=== PATIENT | male | born 1950 | race Caucasian/White ===

== ENCOUNTER 2019-12-05 09:19 | Outpatient (CLI) | payer MEDICARE ==
[2019-12-05] MEDS ORDERED: Iopamidol-370 76% 500 ML 1 ML ONE (11:34)
--- NOTE | 2019-12-05 11:51 | CT ---
EXAM: CT ANGIOGRAM OF THE NECK INDICATION: History of cervical spondylosis and cervical radiculopathy. Patient is having cervical spine surgery soon. Evaluate vessels prior to surgery. COMPARISON: None. TECHNIQUE: CT angiogram of the neck are performed in the axial plane. Three-dimensional reformatted images are s ubmitted for interpretation. FINDINGS: POSTCONTRAST SOFT TISSUE NECK CT: Aerodigestive tract:Aerodigestive tract is patent. No mucosal abnormality. Sinuses: Adequate aeration of the paranasal sinuses.. Orbits: Bilateral ocular lenses implants are appropriately located. Both globes are intact. Retrobulb ar fat is preserved. Symmetric attenuation the optic nerves and ocular rectus muscles. Salivary glands:Symmetric attenuation of the parotid and submandibular glands . Thyroid gland: Hypodensity in the left thyroid lobe measuring 2.4 x 1.8 cm. Lymph nodes: No evidence of lymphadenopathy by size criteria. Paraspinal muscles: Symmetric attenuation of the sternocleidomastoid muscles. Appropriate attenuation of the paraspinal muscles. Cervical spine:Extensive degenerative changes of the cervical spine. There is severe loss of disc spa ce height with osteophyte formation at C3-C4, C4-C5 C5-C6 and C6-C7. There is vacuum disc phenomenon at C5-C6. There is sclerosis at the C4-C5, C5-C6 and C6-C7 disc spaces. A small focus of v acuum disc phenomenon at C6-C7 is noted. There is bilateral facet hypertrophy at C2-C3 with associated 4 mm of anterolisthesis. There is also bilateral facet hypertrophy at C5-C6. There are varying degrees of central canal stenosis and neural foraminal narrowing on the basis of degenerative change. Upper mediastinum and lung apices: Chronic changes of the lung parenchyma. No acute abnormality in th e mediastinum. CTA OF THE NECK WITH CONTRAST: Aorta: Appropriate enhancement and luminal diameter. Right carotid artery: Appropriate enhancement and luminal diameter of the origin of the right carotid artery, innominate artery, common carotid artery, carotid bifurcation and internal carotid artery. Atherosclerosis in the right carotid bifurcation and proximal right internal carotid artery. No signi ficant stenosis based upon NASCET criteria. Left carotid: Appropriate enhancement and luminal diameter the origin left carotid artery, common car otid artery, carotid bifurcation and internal carotid artery. Atherosclerosis in the left carotid bifurcation and proximal internal carotid artery. No significant stenosis based upon NASCET criteria. Subclavian arteries:Patent. Vertebral arteries:Patent throughout their course in the neck. Vertebral arteries are essentially cod ominant. IMPRESSION: No hemodynamically significant stenosis, occlusion or aneurysmal formation. Transcribed Date/Time: 12/05/2019 12:02 PM
== END 2019-12-05 09:20 | disposition home or self-care (01) ==
LOC: BICCT 09:19
PROVIDERS: ATTEND Surgery
DX: M47.12 Other spondylosis with myelopathy, cervical region (principal); M47.22 Other spondylosis with radiculopathy, cervical region
CPT/HCPCS: 70498; 82565; Q9967

== ENCOUNTER 2019-12-16 07:25 | Outpatient (CLI) | payer MEDICARE, OTHER ==
[2019-12-16 14:10] LABS: Hemoglobin 14.7 g/dL (14.0-18.0); Mean Corpuscular HGB CONC 33.3 g/dL (32.0-36.0); Mean Corpuscular Hemoglobin 32.3 pg (27.0-31.0); Mean Platelet Volume 7.6 fL (7.4-10.4); Platelet Count 365 thou/uL (130-400); RBC Distribution Width 12.1 % (11.5-14.5); Red Blood Cell (RBC) Count 4.55 mill/uL (4.70-6.10); White Blood Cell (WBC) Count 8.6 thou/uL (4.8-10.8)
[2019-12-16 14:21] LABS: INR-International Normal Ratio 0.9; PTT 26.1 sec (22.9-36.1); Prothrombin Time 12.8 sec (12.0-14.7)
[2019-12-16 14:51] LABS: Anion Gap 15 mmol/L (10-20); BUN (Urea Nitrogen) 17 mg/dL (8.4-25.7); Calc. Creatinine Clearance 0 mL/min (70-130); Calcium 9.5 mg/dL (7.8-10.44); Carbon Dioxide 20 mmol/L (23-31); Chloride 107 mmol/L (98-107); Estimated GFR-MDRD 80; Glucose 133 mg/dL (80-115); Potassium 4.3 mmol/L (3.5-5.1); Sodium 138 mmol/L (136-145)
--- NOTE | 2019-12-17 07:06 | EKG ---
Test Reason : Blood Pressure : / mmHG Vent. Rate : 072 BPM Atrial Rate : 072 BPM P-R Int : 130 ms QRS Dur : 088 ms QT Int : 404 ms P-R-T Axes : 078 052 072 degrees QTc Int : 442 ms Normal sinus rhythm Possible Left atrial enlargement Confirmed by DR. Catrachito BHATTI ([id number]) on 12/17/2019 7:06:45 AM Referred By: DAVEY Confirmed By:DR. Catrachito BHATTI
[2019-12-17 11:54] LABS: SARS-CoV-2 MS2 Positive; SARS-CoV-2 N Gene Negative; SARS-CoV-2 S Gene Negative; SARS-CoV-2 by NAA Not Detected (NotDetected); SARS-CoV-2 orf1ab Negative
== END 2019-12-16 07:26 | disposition home or self-care (01) ==
LOC: LABBT 07:25
PROVIDERS: ATTEND Surgery
DX: Z01.818 Encounter for other preprocedural examination (principal); M47.16 Other spondylosis with myelopathy, lumbar region; M47.26 Other spondylosis with radiculopathy, lumbar region; M48.02 Spinal stenosis, cervical region; Z20.828 Contact with and (suspected) exposure to other viral communicable diseases
CPT/HCPCS: 80048; 85027; 85610; 85730; 93005; U0003; 87635; 93010

== ENCOUNTER 2019-12-16 11:00 | Inpatient (IN) | payer MEDICARE, OTHER ==
[2019-12-19] MEDS ORDERED: Bacitracin Zinc Ointment 30 gm TUBE ONE ×2 (06:49→06:54)
[2019-12-19] MEDS ORDERED: Sodium Chloride 0.9% 10 ML ONE (06:49)
[2019-12-19] MEDS ORDERED: Thrombin 5000 UNITS/5 ML VIAL ONE ×2 (06:49→11:26)
[2019-12-19] MEDS ORDERED: Fentanyl 250 MCG/5 ML VIAL ONE (07:09)
[2019-12-19] MEDS ORDERED: Midazolam HCl 2 mg/2 ml Vial ONE (07:29)
[2019-12-19] MEDS ORDERED: Rocuronium Bromide 50 MG/5 ML VIAL ONE ×2 (09:34→10:35)
[2019-12-19] MEDS ORDERED: HYDROmorphone 2 MG/ML VIAL ONE (10:10)
[2019-12-19] MEDS ORDERED: Ondansetron PF 4 MG/2 ML Vial ONE (10:29)
[2019-12-19] MEDS ORDERED: Dexamethasone 20 MG/5 ML VIAL ONE (10:29)
[2019-12-19] MEDS ORDERED: Rocuronium Bromide 10 MG/ML (10ML VIAL) ONE (10:29)
[2019-12-19] MEDS ORDERED: Lidocaine 1% PF 5 ML VIAL ONE (10:29)
[2019-12-19] MEDS ORDERED: PROPOFOL 200 MG/20 ML VIAL ONE (10:29)
[2019-12-19] MEDS ORDERED: Ketorolac Tromethamine 30 MG/ML VIAL ONE (10:29)
[2019-12-19] MEDS ORDERED: SUGAMMADEX SODIUM 200 MG/2 ML VIAL ONE (12:01)
[2019-12-19] MEDS ORDERED: Promethazine HCl 25 MG/ML VIAL IM PRN ×2 (12:09→13:02)
[2019-12-19] MEDS ORDERED: Ondansetron HCl/PF 4 MG/2 ML Vial IVP PRN (12:09)
[2019-12-19] MEDS ORDERED: Promethazine HCl 25 MG/ML VIAL SLOW IVP PRN (12:09)
[2019-12-19] MEDS ORDERED: HYDROmorphone 2 MG/ML VIAL SLOW IVP PRN (12:09)
[2019-12-19] MEDS ORDERED: Meperidine HCl/PF 25 MG/ML VIAL SLOW IVP PRN (12:09)
[2019-12-19] MEDS ORDERED: Fleet Enema 133 ML BOT PR PRN (13:02)
[2019-12-19] MEDS ORDERED: traMADol HCl 50 MG TAB PO PRN (13:02)
[2019-12-19] MEDS ORDERED: diphenhydrAMINE 25 MG CAP PO PRN (13:02)
[2019-12-19] MEDS ORDERED: Mag-Al 1200 mg/1200 mg/30 ML UDCUP PO PRN (13:02)
[2019-12-19] MEDS ORDERED: Ondansetron PF 4 MG/2 ML Vial IVP PRN (13:02)
[2019-12-19] MEDS ORDERED: Bisacodyl 10 MG SUPP PR PRN (13:02)
[2019-12-19] MEDS ORDERED: Milk Of Magnesia 30 ML UDCUP PO PRN (13:02)
[2019-12-19] MEDS ORDERED: HYDROmorphone 0.5 MG/0.5 ML SYRINGE ONE (13:30)
[2019-12-19] MEDS ORDERED: Fentanyl 100 MCG/2 ML VIAL ONE ×3 (13:47→15:49)
[2019-12-19] MEDS ORDERED: Metoprolol Tartrate 5 MG/5 ML VIAL ONE (13:54)
[2019-12-19] MEDS ORDERED: Labetalol HCl 100 MG/20 ML VIAL ONE (14:34)
[2019-12-19 18:44] VITALS: BMI 25.1
[2019-12-19] MEDS: Diazepam 5 MG TAB PO PRN (18:55)
[2019-12-19] MEDS: Sodium Chloride 0.9% 1,000 ML IV SCH ×3 (19:03→20:59)
[2019-12-19] MEDS: busPIRone HCl 10 MG TAB PO SCH ×2 (19:03→20:42)
[2019-12-19] MEDS: CEFAZOLIN 2 GM in Premix Bag 1 BAG IVPB SCH ×2 (19:05→23:33)
[2019-12-19] MEDS: Gabapentin 400 MG CAP PO SCH (20:42)
[2019-12-19] MEDS: HYDROcodone/Acetaminophen 7.5/325 mg Tablet PO PRN (20:43)
[2019-12-19] MEDS: lamoTRIgine 100 MG TAB PO SCH (20:43)
[2019-12-19] MEDS ORDERED: cloNIDine 0.2 MG TAB PO SCH (21:45)
[2019-12-19] MEDS: Acetaminophen 325 MG TAB PO PRN (22:32)
[2019-12-19] MEDS ORDERED: cloNIDine 0.2 MG TAB PO PRN (23:15)
[2019-12-19] MEDS: Morphine 2 MG/ML VIAL SLOW IVP PRN (23:33)
[2019-12-20] MEDS: HYDROcodone/Acetaminophen 7.5/325 mg Tablet PO PRN (00:33)
[2019-12-20] MEDS: Morphine 2 MG/ML VIAL SLOW IVP PRN ×2 (02:37→08:34)
[2019-12-20] MEDS: Labetalol HCl 100 MG/20 ML VIAL SLOW IVP PRN (02:38)
[2019-12-20] MEDS: Acetaminophen 325 MG TAB PO PRN ×2 (02:40→07:15)
[2019-12-20] MEDS: HYDROcodone/Acetaminophen 10/325 mg Tablet PO PRN ×4 (04:33→23:40)
[2019-12-20] MEDS: Diazepam 5 MG TAB PO PRN (04:34)
[2019-12-20] MEDS: CEFAZOLIN 2 GM in Premix Bag 1 BAG IVPB SCH ×3 (08:43→23:48)
[2019-12-20] MEDS: busPIRone HCl 10 MG TAB PO SCH ×3 (08:44→20:48)
[2019-12-20] MEDS: Lisinopril/Hydrochlorothiazide 20 mg/12.5 mg Tablet PO SCH (08:44)
[2019-12-20] MEDS: Gabapentin 400 MG CAP PO SCH ×2 (08:45→20:49)
[2019-12-20] MEDS: lamoTRIgine 100 MG TAB PO SCH ×2 (08:45→20:49)
[2019-12-20] MEDS: Venlafaxine HCl XR 150 MG CAP PO SCH (08:45)
[2019-12-20] MEDS: Sodium Chloride 0.9% 1,000 ML IV SCH ×2 (08:52→23:47)
--- NOTE | 2019-12-20 11:28 | PRG ---
DATE OF SERVICE: 12/20/2019 I told Mr. Stuart this morning he needs to take his blood pressure medicine and take his medicines as we have ordered. His systolic blood pressure was 180/80 last night because he would not take his blood pressure medicine. We will add Toradol to his pain medication regimen. We will keep his drain in place. Job ID: [id number]
[2019-12-20] MEDS: Ketorolac Tromethamine 30 MG/ML VIAL IVP PRN (14:06)
[2019-12-20] MEDS: Mometasone 200 MCG/Formoterol 5 MCG 120 PUFF INHALER INH SCH (19:11)
[2019-12-21] MEDS: Diazepam 5 MG TAB PO PRN (04:43)
[2019-12-21] MEDS: HYDROcodone/Acetaminophen 10/325 mg Tablet PO PRN ×3 (06:15→20:30)
[2019-12-21] MEDS: Mometasone 200 MCG/Formoterol 5 MCG 120 PUFF INHALER INH SCH ×2 (07:44→19:18)
[2019-12-21] MEDS: CEFAZOLIN 2 GM in Premix Bag 1 BAG IVPB SCH ×3 (07:53→23:19)
[2019-12-21] MEDS: Gabapentin 400 MG CAP PO SCH ×2 (07:53→20:26)
[2019-12-21] MEDS: busPIRone HCl 10 MG TAB PO SCH ×3 (07:53→20:25)
[2019-12-21] MEDS: lamoTRIgine 100 MG TAB PO SCH ×2 (07:54→20:27)
[2019-12-21] MEDS: Venlafaxine HCl XR 150 MG CAP PO SCH (07:54)
[2019-12-21] MEDS: Lisinopril/Hydrochlorothiazide 20 mg/12.5 mg Tablet PO SCH (07:54)
[2019-12-21] MEDS: Acetaminophen/Codeine 30-300mg Tablet PO PRN ×3 (08:25→23:30)
--- NOTE | 2019-12-21 09:11 | OP ---
DATE OF PROCEDURE: 12/19/2019 [employer] MACHINE OPERATOR: Margareth Mendoza PA-C. 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 PROCEDURES PERFORMED: 1. Anterior C3-C4, C4-C5, C5-C6, C6-C7 diskectomies for decompression of spinal cord neural elements and jewish of lordosis. 2. Placement of interbody spacer, C3-C4, C4-C5, C5-C6, C6-C7, packed with local bone autograft obtained from the same incision and allograft (spacer separate from plate). 3. Anterior cervical plate and screw fixation, C3 through C7. 4. Arthrodesis, C3 through C7, Interbody spacers separate from plate. 5. Bottom of C2-C3, C3-C4, C4-C5, C5-C6, C6-C7 laminectomies, partial facetectomies, and foraminotomies. 6. Screw-meagan fixation, C3, C4, C5, C6, and C7. 7. Posterolateral arthrodesis, C3, C4, C5, C6, and C7. DESCRIPTION OF PROCEDURE: After informed consent was obtained from the patient, the patient was brought to the OR. Proper patient, pause, and identification were carried out. He was positioned supine and his cervical spine kept in neutral position. All appropriate points were padded. We identified an anterior oblique sharda to allow for approach at C3, C4, C5, C6, C7. The linear sharda was made, this area was sterilely cleansed, prepared, and draped. Proper patient, pause, and identification were carried out. The wound was then opened with combination of sharp, monopolar, and blunt dissection. We proceeded to expose the C3, C4, C5, C6, C7 segments. Localization film confirmed our area of interest. We then performed distraction at C3-C4. Diskectomy at C3-C4, C4-C5, C5-C6, C6-C7 was performed with endplate preparation, placement of interbody spacer, C3-C4, C4-C5, C5-C6, C6-C7. All packed with local bone autograft obtained from the same incision and allograft for arthrodesis, the spacers were separate from the plate. Microscope was used for this procedure. Microscope was then removed and anterior cervical plate and screw fixation at C3, C4, C5, C6, C7 occurred. I had opted not to put a left C5 screw as the patient had an ectatic left vertebral artery. Final tightening occurred. The wound was then closed in anatomic layers following the placement of a drain. The patient was then placed in pins and positioned prone with cervical spine in neutral position. A linear dorsal sharda was made posteriorly from C2 through C7. This area was sterilely cleansed, prepared, and draped. Proper patient, pause, and identification were carried out. The wound was then opened with a combination of sharp, monopolar, and blunt dissection. The C2, C3, C4, C5, C6, C7 segments were all exposed. Localization film confirmed our area of interest. We then performed a bottom of C2-C3, C3-C4, C4-C5, C5-C6, C6-C7 laminectomies, partial facetectomies. We then placed screw meagan fixation at C3, C4, C5, C6, C7 for meagan placement, final tightening occurred. Posterolateral arthrodesis was initiated with local bone autograft obtained from the same incision and allograft, C3, C4, C5, C6, C7. Copious irrigation occurred throughout as did maximizing hemostasis. The wound was closed in anatomic layers, following sprinkling of vancomycin powder. The patient emerged from anesthesia. Job ID: [id number]
[2019-12-21] MEDS: Ketorolac Tromethamine 30 MG/ML VIAL IVP PRN ×3 (09:16→23:20)
--- NOTE | 2019-12-21 12:16 | PRG ---
DATE OF SERVICE: Mr. Stuart looks better today. He is more comfortable. His strength is improved. He feels his myelopathy is certainly improved. He has ambulated. He would like to go home tomorrow. I think this is reasonable. We will leave his anterior drain in for one more day and likely plan for removal tomorrow. Should he be ambulating, voiding on his own, we will remove his [place] catheter today, and tolerating orals. We will plan for discharge tomorrow. Job ID: [id number]
[2019-12-21] MEDS ORDERED: FLU VACC QS2020-21(65YR UP)/PF 240 MCG/0.7 ML SYRINGE IM ONE (15:15)
[2019-12-21] MEDS: Sodium Chloride 0.9% 1,000 ML IV SCH (20:19)
[2019-12-22] MEDS: HYDROcodone/Acetaminophen 10/325 mg Tablet PO PRN ×2 (02:30→08:52)
[2019-12-22] MEDS: Acetaminophen/Codeine 30-300mg Tablet PO PRN ×2 (05:28→12:45)
[2019-12-22] MEDS: Sodium Chloride 0.9% 1,000 ML IV SCH (06:23)
[2019-12-22] MEDS: Mometasone 200 MCG/Formoterol 5 MCG 120 PUFF INHALER INH SCH (07:00)
[2019-12-22] MEDS: CEFAZOLIN 2 GM in Premix Bag 1 BAG IVPB SCH (08:49)
[2019-12-22] MEDS: Lisinopril/Hydrochlorothiazide 20 mg/12.5 mg Tablet PO SCH (08:50)
[2019-12-22] MEDS: busPIRone HCl 10 MG TAB PO SCH (08:50)
[2019-12-22] MEDS: Gabapentin 400 MG CAP PO SCH (08:50)
[2019-12-22] MEDS: Venlafaxine HCl XR 150 MG CAP PO SCH (08:50)
[2019-12-22] MEDS: lamoTRIgine 100 MG TAB PO SCH (08:52)
[2019-12-22] MEDS: Labetalol HCl 100 MG/20 ML VIAL SLOW IVP PRN ×3 (09:53→13:43)
[2019-12-22] MEDS: Diazepam 5 MG TAB PO PRN (09:56)
[2019-12-22 11:46] VITALS: TEMP 98.2
[2019-12-22 14:06] VITALS: BP 156/97
--- NOTE | 2019-12-24 00:11 | PRG ---
DATE OF SERVICE: 12/22/2019 HISTORY: Mr. Stuart is postoperative day #3 after undergoing C3 to C7 ACDF and C3 to C7 laminectomies and posterolateral instrumented fusion. The patient was resting on his side in bed when I saw him for evaluation in the morning. He is wearing his [place] J cervical collar while in bed. He does endorse neck pain and is requesting when he can receive his next dose of pain medications. Overall, he reports that his strength is much improved. He has been ambulating without difficulty. The patient demonstrates full strength throughout his extremities on examination. Discussed with the patient options for admission to inpatient rehab for further pain control and therapies versus discharge home. The patient is adamant that he is ready to be discharged home today, so long as he is provided with pain medication. Discussed with the patient that while prior to surgery, he was prescribed [place] 10/325 by another provider, our team will be providing [place] 5/325 with him to go home with. Discussed that this will be a one-time Rx for [place] and that should he require any additional refills, he will need to request this from his Primary Care or Pain Management. The patient voices understanding of our pain medication policy. He will also be provided with tramadol for [id number] pain as well as Flexeril not for muscle spasms. He has exhibited difficulty with blood pressure control during his hospitalization. Blood pressure medications have been ordered during his hospital stay, but the patient has been reluctant to take as recommended. His blood pressure has been as high as 188/110 this morning. He will receive labetalol, and should his blood pressure normalize, he may be discharged home today. Discussed wound care and postoperative restrictions. 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 I counseled him that he will need to ensure that he heals fully from his operation over the next several months before he can fully get back to his normal work activities. Discussed the patient should not perform lifting over 10 pounds for the first 6 weeks after surgery. Discussed that he should wear his [place] J cervical collar when out of bed and ambulating as well as when riding in the car. Our team will see the patient on an outpatient basis in the upcoming week for reevaluation and wound check. May call our office sooner with any questions or concerns. The patient voiced understanding and has no further questions at this time. Job ID: [id number]
== END 2019-12-22 15:05 | disposition home or self-care (01) | DRG 454 ==
LOC: SURG A 12-19 05:43 → SJJU 12-19 16:42
PROVIDERS: ADMIT Surgery; ATTEND Surgery
PROC: 0RG2071 Fusion of 2 or more Cervical Vertebral Joints with Autologous Tissue Substitute, Posterior Approach, Posterior Column, Open Approach (ICD-10-PCS; principal; 2019-12-19)
PROC: 0RG20K0 Fusion of 2 or more Cervical Vertebral Joints with Nonautologous Tissue Substitute, Anterior Approach, Anterior Column, Open Approach (ICD-10-PCS; 2019-12-19)
PROC: 0RB30ZZ Excision of Cervical Vertebral Disc, Open Approach (ICD-10-PCS; 2019-12-19)
PROC: 3E02340 Introduction of Influenza Vaccine into Muscle, Percutaneous Approach (ICD-10-PCS; 2019-12-21)
DX: M48.02 Spinal stenosis, cervical region (principal); M50.023 Cervical disc disorder at C6-C7 level with myelopathy; M50.01 Cervical disc disorder with myelopathy, high cervical region; M50.11 Cervical disc disorder with radiculopathy, high cervical region; M50.123 Cervical disc disorder at C6-C7 level with radiculopathy; Z23 Encounter for immunization; Z20.828 Contact with and (suspected) exposure to other viral communicable diseases; I10 Essential (primary) hypertension; G47.33 Obstructive sleep apnea (adult) (pediatric); J30.2 Other seasonal allergic rhinitis; F32.9 Major depressive disorder, single episode, unspecified; H54.8 Legal blindness, as defined in USA; F41.9 Anxiety disorder, unspecified; F43.10 Post-traumatic stress disorder, unspecified; Z79.899 Other long term (current) drug therapy
CPT/HCPCS: 36415; 76000; 80048; 85027; 85610; 85730; 86850; 86900; 86901; 87635; 90471; 90662; 93005; 94640; C1713; C1768; C1776; G0008; J0690; J1100; J1170; J1885; J2250; J2270; J2405; J2704; J3010; J3370; J3490; J7620; U0003

== ENCOUNTER 2019-12-23 12:13 | Inpatient (IN) | payer MEDICARE ==
[2019-12-23] MEDS ORDERED: Naloxone HCl 0.4 mg/ml Vial ONE (12:52)
[2019-12-23] MEDS ORDERED: Naloxone HCl 2 mg/2 ml Syringe ONE (12:53)
[2019-12-23] MEDS ORDERED: Ondansetron PF 4 MG/2 ML Vial ONE (12:57)
[2019-12-23 13:13] LABS: #Basophils 0.1 thou/uL (0.0-0.2); #Eosinphils 0.1 thou/uL (0.0-0.7); #Lymphocytes 1.5 thou/uL (1.20-3.40); #Monocytes 1.5 thou/uL (0.11-0.59); #Neutrophils 15.2 thou/uL (1.40-6.50); %Basophils 0.3 % (0.0-1.0); %Eosinophils 0.6 % (0.0-10.0); %Lymphocytes 8.2 % (21.0-51.0); %Monocytes 8.1 % (0.0-10.0); %Neutrophils 82.8 % (42.0-75.0); Hemoglobin 12.1 g/dL (14.0-18.0); Mean Corpuscular HGB CONC 33.2 g/dL (32.0-36.0); Mean Corpuscular Hemoglobin 32.7 pg (27.0-31.0); Mean Corpuscular Volume 98.5 fL (78.0-98.0); Mean Platelet Volume 6.9 fL (7.4-10.4); Platelet Count 343 thou/uL (130-400); RBC Distribution Width 11.7 % (11.5-14.5); Red Blood Cell (RBC) Count 3.71 mill/uL (4.70-6.10); White Blood Cell (WBC) Count 18.4 thou/uL (4.8-10.8)
[2019-12-23 13:30] LABS: ALT (SGPT) 27 U/L (8-55); AST (SGOT) 48 U/L (5-34); Albumin 3.6 g/dL (3.4-4.8); Alcohol Less than 10 mg/dL (Less than 10); Alkaline Phosphatase 130 U/L (40-110); Anion Gap 12 mmol/L (10-20); BUN (Urea Nitrogen) 16 mg/dL (8.4-25.7); Bilirubin, Total 0.6 mg/dL (0.2-1.2); Calc. Creatinine Clearance 0 mL/min (70-130); Calcium 8.3 mg/dL (7.8-10.44); Carbon Dioxide 21 mmol/L (23-31); Chloride 105 mmol/L (98-107); Estimated GFR-MDRD Greater than 90; Glucose 137 mg/dL (80-115); Potassium 3.9 mmol/L (3.5-5.1); Protein, Total 6.6 g/dL (5.8-8.1); Salicylate Less than 8.0 mg/dL (15.0-30.0); Sodium 134 mmol/L (136-145)
[2019-12-23] MEDS ORDERED: Naloxone HCl 2 MG, Admixture Fee 1 EACH in Sodium Chloride 0.9% 500 ML IV PRN (13:30)
[2019-12-23] MEDS ORDERED: Naloxone HCl 0.4 mg/ml Vial IV SCH (13:30)
[2019-12-23] MEDS ORDERED: Cefepime 2 GM VIAL ONE (13:34)
[2019-12-23] MEDS ORDERED: Vancomycin 1.5 GRAM/300 ML BAG 1.5 GM in Premix Bag 1 BAG IVPB SCH (13:45)
[2019-12-23] MEDS ORDERED: Cefepime 2 GM in Sodium Chloride 0.9% 100 ML IVPB SCH (13:45)
--- NOTE | 2019-12-23 14:08 | CT ---
CT BRAIN WITHOUT CONTRAST: 12/23/19 HISTORY: 69-year-old male with inability to feel all extremities. EMS administered Narcan and the feeling in all the extremities returned. The patient is able to stand and sit in wheelchair. FINDINGS: No evidence of acute infarct, hemorrhage, midline shift or abnormality extra-axial fluid collections are seen. Asymmetric cortical volume loss is noted. The ventricular size is appropriate and the basil ar cisterns patent. The bony calvarium is intact. The visualized paranasal sinuses and mastoid air ce lls are well aerated. IMPRESSION: No CT evidence of acute intracranial process. POS: MZA
[2019-12-23 14:37] LABS: Bilirubin Negative (Negative); Blood, Urine Negative (Negative); Clarity Clear (Clear); Glucose, Urine (Dipstick) Normal (Negative); Ketone, Urine 10 mg/dL (Negative); Leukocyte Negative Leu/uL (Negative); Nitrite Negative (Negative); Protein, Urine (Dipstick) Negative (Neg-Trace); Specific Gravity, Urine 1.014 (1.002-1.036); Urobilinogen Normal mg/dL (Less than 2); pH, Urine 7.5 (5.0-9.0)
[2019-12-23] MEDS ORDERED: Iopamidol 370 76% 100 ML VIAL ONE (14:39)
--- NOTE | 2019-12-23 14:42 | CT ---
CT NECK SOFT TISSUES WITH CONTRAST: DATE: 12/23/2019. HISTORY: A 69-year-old male with hypesthesia (numbness) of bilateral upper and lower extremities. COMPARISON: CTA of neck of 12/05/2019. FINDINGS: There are new wide, decompressive laminectomy defects, bilateral posterior element metallic screws wi th vertical interlocking rods, and ACDF hardware, at all levels from C2 through C7. In the laminecto my defect at midline, there are postsurgical changes, including fluid and subcutaneous emphysema. Th ere is a new finding of circumferential rim enhancement of the entire thecal sac from C2 through at l east the cervicothoracic junction. Much of the spinal canal contents are obscured by severe streak a rtifact from the metallic hardware, but in levels where the thecal sac is visible, it appears to be s everely flattened in the anteroposterior dimension, presumably by posterior extradural postoperative fluid collection, throughout all visualized levels of the surgery. There is postsurgical edema in the prevertebral space, retropharyngeal space, and posterior periverte bral spaces, and subcutaneous fat posterior to the dorsal cervical fascia. IMPRESSION: 1. Status post anterior cervical diskectomy and fusion, laminectomies, and posterior fusion hardware , throughout almost the entire cervical spine. 2. Postsurgical enhancing granulation tissue circumferentially around the thecal sac outlines anteri or displacement and compression of almost the entire thecal sac by what is presumed to represent dors al postoperative extradural fluid collection. POS: AH
--- NOTE | 2019-12-23 15:23 | PDOC.HHP ---
Hospitalist HPI - History of Present Illness Intermittent paralysis, hypotension History of Present Illness: This is a 69-year-old male patient with a history of Macular degeneration, hypertension, who recently had C3-7 cervical fusion, laminectomy and arthrodesis. He was discharged a day ago after surgery 4 days ago. This morning he was noted to be weak by his in his lower extremities. He was unable to move both lower extremities. And EMS was activated. On evaluation he was noted to be hypotensive which improved with epinephrine injection on the field. He was given Narcan which seemed to improve his paralysis. He was brought to the ED for further evaluation. At the time of my evaluation eduardo walsh complained of ongoing neck and back pain. He was a bit anxious. He denied any chest pain, abdominal pain or diarrhea. On talking to his , she noted he had intermittent cough earlier today with streaks of blood. She notes that he has been generally unable to walk since discharge and she had to help him up to urinate when he needed to. There is no reported incidence of a fall. Patient admits to ongoing neck and back pain and bilateral lower leg pain with weakness however denies any paresthesia or numbness. At presentation his vitals were 144/101, pulse 96, respiratory 19, temperature. Initial saturation was on 6 L oxygen now at 3. Labs showed hyponatremia of 134, CPK 546, leukocytosis of 18.4 and mild anemia of 12.1. CT of his head showed no acute intracranial event., Soft tissue neck CT with contrast showed postsurgical enhancing granulation tissue circumferentially around the thecal sac outlines anterior displacement and compression of almost the entire thecal sac by what is presumed to be postoperative extradural fluid collection While in the ED he was taken to the restroom and noted to become generally paralyzed again unable to move all extremities. He was given a Narcan drip which seemed to reverse this paralysis as well. On discussion with his she notes that she had given him his doses of [place] as prescribed. No indication of excess use of opioids. Neurosurgery came in to evaluate CT scan and patient and noted no acute intervention at the moment and to dischsrge for rehab once stable. Hospitalist consulted for admission for Hospitalist ROS - Review of Systems Constitutional: denies: fever, chills, sweats, weakness Respiratory: reports: cough, dry, shortness of breath, hemoptysis (streak.) Cardiovascular: denies: chest pain, palpitations, orthopnea Genitourinary: denies: dysuria, frequency, incontinence Musculoskeletal: reports: neck pain, leg pain Neurological: reports: weakness. denies: numbness - Medication Medications: Venlafaxine 50 mg every morning Gabapentin 40 mg twice daily [place] 1 as needed Lamotrigine 150 mg twice daily Lisinopril/HCTZ 20/12.5 mg every morning. Pantoprazole 40 mg daily Albuterol inhaler 1 puff as needed Verapamil 240 mg daily. Allergies: No known drug allergies Hospitalist History - Past Medical History Cardiac: reports: HTN - Past Surgical History Other Surgical History: C-spine surgery. - Family History Other Family History: None of significance - Social History Smoking Status: Never smoker Alcohol: reports: None Living Situation: With Family - Exam General Appearance: awake alert General - other findings: In bed, in acute distress with pain. In c-collar Eye: PERRL, anicteric sclera ENT: normocephalic atraumatic, moist mucosa Heart: RRR, no murmur, no gallops, no rubs Gastrointestinal: soft, non-distended, normal bowel sounds Extremities: no cyanosis, no clubbing, no edema, 1+ LE edema Neurological: cranial nerve grossly intact Neurological - other findings: Power 4/5 in both upper and lower limbs Psychiatric: A&O x 3 Hospitalist Results - Labs Result Diagrams: 12/23/19 13:00 12/23/19 12:59 Lab results: WBC 18.4 thou/uL (4.8-10.8) H 12/23/19 13:00 Hgb 12.1 g/dL (14.0-18.0) L 12/23/19 13:00 Hct 36.6 % (42.0-52.0) L 12/23/19 13:00 MCV 98.5 fL (78.0-98.0) H 12/23/19 13:00 Plt Count 343 thou/uL (130-400) 12/23/19 13:00 Neutrophils % 82.8 % (42.0-75.0) H 12/23/19 13:00 Sodium 134 mmol/L (136-145) L 12/23/19 12:59 Potassium 3.9 mmol/L (3.5-5.1) 12/23/19 12:59 Chloride 105 mmol/L (98-107) 12/23/19 12:59 Carbon Dioxide 21 mmol/L (23-31) L 12/23/19 12:59 BUN 16 mg/dL (8.4-25.7) 12/23/19 12:59 Creatinine 0.74 mg/dL (0.7-1.3) 12/23/19 12:59 Glucose 137 mg/dL (80-115) H 12/23/19 12:59 Calcium 8.3 mg/dL (7.8-10.44) 12/23/19 12:59 Total Bilirubin 0.6 mg/dL (0.2-1.2) 12/23/19 12:59 AST 48 U/L (5-34) H 12/23/19 12:59 ALT 27 U/L (8-55) 12/23/19 12:59 Alkaline Phosphatase 130 U/L (40-110) H 12/23/19 12:59 Creatine Kinase 546 U/L (30-200) H 12/23/19 13:00 Serum Total Protein 6.6 g/dL (5.8-8.1) 12/23/19 12:59 Albumin 3.6 g/dL (3.4-4.8) 12/23/19 12:59 Urine Ketones 10 mg/dL (Negative) A 12/23/19 13:24 Urine Blood Negative (Negative) 12/23/19 13:24 Urine Nitrite Negative (Negative) 12/23/19 13:24 Ur Leukocyte Esterase Negative Massimo/uL (Negative) 12/23/19 13:24 Hospitalist H&P A/P - Plan Plan: This is a 69-year-old male patient history of hypertension who recently had C- spine surgery presenting with intermittent generalized weakness and paraparesis. He will be admitted for close monitoring in MICU Intermittent paralysis Likely secondary to post C-spine surgery with edema. He will need admission to MICU for close monitoring We will give Solu-Medrol IV start for now to reduce inflammation If improves will be transferred for physical therapy. Pulmonology consult if he deteriorates. Neurosurgery following. Acute hypoxic respiratory failure. Unclear etiologypossible poor inspiratory effort Concerns for PE versus opiate overdose. Patient is on Narcan dripunlikely We will get a chest x-ray now and evaluate Doppler ultrasound of lower limbs for DVT Holding CTA given that he has had IV contrast for his neck scan We will consider VQ scan if need to evaluate for PE PRN oxygen ABG Pulmonology consult if deteriorates Acute encephalopathy Resolved at the time of my assessment. Patient had intermittent periods of altered mental state of unclear etiology Could be related to opiates however notes he did not take any overdose. We will continue on Narcan drip for now. We will check his ABG B12, TSH Closely monitor. -Shock spinal/sepsis BP improved with epinephrine on the field received vanc and cefapime No other indiation for sepsis-will hold antibiotics for now blood culture ordered. Hypertension Blood pressure not controlled after initial hypotention. Begin home blood pressure medications once verified PRN hydralazine. VT prophylaxisLovenox
--- NOTE | 2019-12-23 16:12 | RAD ---
XR Chest 1 View HISTORY: Hypoxia. COMPARISON: 05/03/2017 FINDINGS: The heart size is normal. The aorta is tortuous. The lungs are well expanded without focal areas of consolidation, pneumothorax or pleural effusions. IMPRESSION: No radiographic evidence of acute cardiopulmonary process.
[2019-12-23] MEDS ORDERED: methylPREDNISolone Sod Succ 40 MG VIAL IVP SCH (17:00)
[2019-12-23 17:16] VITALS: BMI 23.9
[2019-12-23] MEDS: Dextrose 5 % And 0.9 % NaCl 1,000 ML IV SCH (17:31)
[2019-12-23 17:36] LABS: Thyroid Stimulating Hormone 0.1451 uIU/mL (0.35-4.94)
--- NOTE | 2019-12-23 20:07 | ULT ---
BILATERAL LOWER EXTREMITY VENOUS DUPLEX EXAM: Date: 12/23/2019 HISTORY: Recent surgery, bilateral leg pain and swelling. FINDINGS: Real-time color Doppler of right and left lower extremity was performed from groin to calf. This incl udes evaluation of the common femoral, superficial and profunda femoral, saphenous, popliteal, and tr ifurcation veins. This shows patent deep venous system. There is normal compressibility and augmentat ion. There is no evidence of deep venous thrombosis. IMPRESSION: No evidence of deep venous thrombosis of either lower extremity. POS: OFF
[2019-12-23] MEDS: Enoxaparin Sodium 40 MG/0.4 ML SYRINGE SC SCH (21:43)
[2019-12-23] MEDS: Famotidine 20 MG TAB PO SCH (21:43)
[2019-12-23] MEDS: Acetaminophen 500 MG TAB PO PRN (21:44)
[2019-12-24 04:05] LABS: #Basophils 0.1 thou/uL (0.0-0.2); #Lymphocytes 0.7 thou/uL (1.20-3.40); #Monocytes 0.1 thou/uL (0.11-0.59); #Neutrophils 6.5 thou/uL (1.40-6.50); %Basophils 0.9 % (0.0-1.0); %Monocytes 1.2 % (0.0-10.0); %Neutrophils 88.9 % (42.0-75.0); Mean Corpuscular HGB CONC 33.8 g/dL (32.0-36.0); Mean Corpuscular Hemoglobin 32.1 pg (27.0-31.0); Mean Platelet Volume 7.3 fL (7.4-10.4); Platelet Count 385 thou/uL (130-400); RBC Distribution Width 11.6 % (11.5-14.5); Red Blood Cell (RBC) Count 3.74 mill/uL (4.70-6.10); White Blood Cell (WBC) Count 7.3 thou/uL (4.8-10.8)
[2019-12-24 04:14] LABS: Anion Gap 11 mmol/L (10-20); BUN (Urea Nitrogen) 13 mg/dL (8.4-25.7); Calc. Creatinine Clearance 107 mL/min (70-130); Carbon Dioxide 24 mmol/L (23-31); Chloride 105 mmol/L (98-107); Estimated GFR-MDRD Greater than 90; Glucose 165 mg/dL (80-115); Potassium 4.1 mmol/L (3.5-5.1); Sodium 136 mmol/L (136-145)
[2019-12-24] MEDS: Acetaminophen 500 MG TAB PO PRN (04:40)
[2019-12-24] MEDS: Dextrose 5 % And 0.9 % NaCl 1,000 ML IV SCH (06:42)
[2019-12-24] MEDS ORDERED: Non-Formulary Item 1 EACH (Budesonide/Formoterol Fumarate [Budesonide-Formoterol 160-4.5] INH PRN (07:26)
[2019-12-24] MEDS ORDERED: Non-Formulary Item 1 EACH (Albuterol Sulfate Hfa (Or) 200 PUFF Inh) INH PRN (07:26)
[2019-12-24] MEDS ORDERED: HYDROcodone/Acetaminophen 10/325 mg Tablet PO PRN ×2 (07:26→07:40)
[2019-12-24] MEDS ORDERED: PROVENTIL INHALER 6.7 G (200 INHALATIONS) INH PRN (07:47)
[2019-12-24] MEDS ORDERED: hydrALAZINE 20 MG/ML VIAL SLOW IVP PRN (08:40)
--- NOTE | 2019-12-24 08:49 | PDOC.HOSPP ---
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 He has not had any more episodes of weakness. but complains of severe pain in his neck, and back. - Objective Vital Signs & Weight: Vital Signs (12 hours) Temp 12/24/19 00:08 98.6 F Weight Weight 164 lb 1 oz Most Recent Monitor Data Heart Rate from ECG 91 NIBP 180/90 NIBP BP-Mean 120 Respiration from ECG 17 SpO2 100 I&O: 12/23/19 12/24/19 12/25/19 06:59 06:59 06:59 Intake Total 900 Output Total 1600 Balance -700 Result Diagrams: 12/24/19 03:29 12/24/19 03:29 Hospitalist ROS - Medication Medications: Active Medications Generic Name Dose Route Start Last Admin Trade Name Freq PRN Reason Stop Dose Admin Acetaminophen 1,000 mg 12/23/19 19:13 12/24/19 04:40 Acetaminophen 500 Mg Tab PO 1,000 mg Q4H PRN Administration Headache/Fever or Pain Enoxaparin Sodium 40 mg 12/23/19 21:00 12/23/19 21:43 Enoxaparin Sodium 40 Mg/0.4 Ml Syringe SC 40 mg 2100 RONEY Administration Famotidine 20 mg 12/23/19 21:00 12/23/19 21:43 Famotidine 20 Mg Tab PO 20 mg BID RONEY Administration Dextrose/Sodium Chloride 1,000 mls @ 75 mls/hr 12/23/19 16:30 12/24/19 06:42 D5 0.9% Ns IV 1,000 mls .[id number] RONEY Administration Sodium Chloride 10 ml 12/23/19 21:00 12/23/19 21:44 Flush - Normal Saline 10 Ml Syringe IVF 10 ml Q12HR RONEY Administration - Exam General Appearance: NAD Eye: PERRL, anicteric sclera ENT: normocephalic atraumatic, no oropharyngeal lesions Heart: RRR, no murmur, no gallops, no rubs, normal peripheral pulses Respiratory: CTAB, no wheezes, no rales, no ronchi, normal chest expansion, no tachypnea, normal percussion Gastrointestinal: soft, non-tender, non-distended, normal bowel sounds, no palpable masses, no hepatomegaly Extremities: no cyanosis, no clubbing, no edema Neurological: no focal deficits Neurological - other findings: muscle strength is 5/5 in both upper and lower extremities Musculoskeletal: normal tone, normal strength, no muscle wasting Hosp A/P (1) Lower extremity weakness Code(s): R29.898 - OTH SYMPTOMS AND SIGNS INVOLVING THE MUSCULOSKELETAL SYSTEM Status: Acute (2) Cervical spinal stenosis Code(s): M48.02 - SPINAL STENOSIS, CERVICAL REGION Status: Chronic (3) Hx of cervical spine surgery Code(s): Z98.890 - OTHER SPECIFIED POSTPROCEDURAL STATES Status: Chronic (4) Hypertension Code(s): I10 - ESSENTIAL (PRIMARY) HYPERTENSION Status: Chronic (5) Chronic pain Code(s): G89.29 - OTHER CHRONIC PAIN Status: Acute - Plan * Lower extremity weakness- this appears to have resolved, could be related to inflammation from his recent surgery * Agree with PT/OT * HTN- blood pressure is elevated- will re-start his home medications * Chronic pain- re-start [place] * Supressed TSH- will check free T4 and Free T3 * Patient is being screened for Inpatient Rehab
[2019-12-24] MEDS ORDERED: Ketorolac Tromethamine 30 MG/ML VIAL IVP PRN (08:59)
[2019-12-24] MEDS ORDERED: Non-Formulary Item 1 EACH (Lamotrigine [Lamictal] 150 MG Tablet) PO SCH (09:00)
--- NOTE | 2019-12-24 09:09 | PRG ---
DATE OF SERVICE: 12/24/2019 Mr. Stuart was admitted one day after being discharged for accidental narcotic overdose. He was given Narcan x2 and emerged from his narcotic-induced slumber. He is neurologically intact and doing fine. His CT of the neck look fine. He needs inpatient rehab. I talked to the family yesterday about this. Job ID: [id number]
[2019-12-24] MEDS: busPIRone HCl 10 MG TAB PO SCH ×3 (09:23→20:58)
[2019-12-24] MEDS: Famotidine 20 MG TAB PO SCH ×2 (09:23→21:00)
[2019-12-24] MEDS: lamoTRIgine 100 MG TAB PO SCH ×2 (09:24→20:59)
[2019-12-24] MEDS: Venlafaxine HCl XR 150 MG CAP PO SCH (09:25)
[2019-12-24] MEDS: Lisinopril/Hydrochlorothiazide 20 mg/12.5 mg Tablet PO SCH (09:29)
[2019-12-24] MEDS: Gabapentin 400 MG CAP PO SCH ×2 (09:29→21:00)
[2019-12-24 09:53] LABS: Free T4 (Free Thyroxine) 1.09 ng/dL (0.70-1.48)
[2019-12-24] MEDS ORDERED: methylPREDNISolone Sod Succ/PF 125 MG/2 ML VIAL IVP SCH (17:00)
[2019-12-24] MEDS: Mometasone 200 MCG/Formoterol 5 MCG 120 PUFF INHALER INH SCH (18:37)
[2019-12-24] MEDS: Enoxaparin Sodium 40 MG/0.4 ML SYRINGE SC SCH (21:00)
[2019-12-25 05:54] LABS: #Lymphocytes 0.8 thou/uL (1.20-3.40); #Monocytes 0.3 thou/uL (0.11-0.59); #Neutrophils 9.1 thou/uL (1.40-6.50); %Basophils 0.1 % (0.0-1.0); %Eosinophils 0.1 % (0.0-10.0); %Lymphocytes 7.8 % (21.0-51.0); %Monocytes 2.5 % (0.0-10.0); %Neutrophils 89.5 % (42.0-75.0); Hemoglobin 11.4 g/dL (14.0-18.0); Mean Corpuscular HGB CONC 33.2 g/dL (32.0-36.0); Mean Corpuscular Hemoglobin 31.4 pg (27.0-31.0); Mean Corpuscular Volume 94.4 fL (78.0-98.0); Mean Platelet Volume 7.2 fL (7.4-10.4); Platelet Count 412 thou/uL (130-400); RBC Distribution Width 11.7 % (11.5-14.5); Red Blood Cell (RBC) Count 3.65 mill/uL (4.70-6.10); White Blood Cell (WBC) Count 10.2 thou/uL (4.8-10.8)
[2019-12-25 06:18] LABS: Anion Gap 13 mmol/L (10-20); BUN (Urea Nitrogen) 23 mg/dL (8.4-25.7); Calc. Creatinine Clearance 108 mL/min (70-130); Calcium 8.6 mg/dL (7.8-10.44); Carbon Dioxide 22 mmol/L (23-31); Chloride 105 mmol/L (98-107); Estimated GFR-MDRD Greater than 90; Glucose 137 mg/dL (80-115); Potassium 3.9 mmol/L (3.5-5.1); Sodium 136 mmol/L (136-145)
[2019-12-25] MEDS: Mometasone 200 MCG/Formoterol 5 MCG 120 PUFF INHALER INH SCH ×2 (07:49→19:37)
[2019-12-25] MEDS: busPIRone HCl 10 MG TAB PO SCH ×3 (08:40→21:08)
[2019-12-25] MEDS: Venlafaxine HCl XR 150 MG CAP PO SCH (08:41)
[2019-12-25] MEDS: lamoTRIgine 100 MG TAB PO SCH ×2 (08:41→21:08)
[2019-12-25] MEDS: Gabapentin 400 MG CAP PO SCH ×2 (08:41→21:07)
[2019-12-25] MEDS: Famotidine 20 MG TAB PO SCH ×2 (08:41→21:07)
[2019-12-25] MEDS: Lisinopril/Hydrochlorothiazide 20 mg/12.5 mg Tablet PO SCH (08:41)
--- NOTE | 2019-12-25 08:57 | PDOC.HOSPP ---
- Subjective Encounter Date: 12/25/19 Encounter Time: 08:56 Subjective: Mr. Stuart was seen today in follow-up of accidental narcotic overdose. He does not have any new complaints. - Objective Vital Signs & Weight: Vital Signs (12 hours) Temp Pulse Resp BP Pulse Ox 12/25/19 07:23 97.9 F 73 16 162/92 H 99 12/25/19 03:19 97.6 F 60 17 143/87 H 96 12/24/19 23:36 98.5 F 87 18 134/80 97 12/24/19 20:58 98 Weight Weight 164 lb 1 oz Most Recent Monitor Data Heart Rate from ECG 76 NIBP 139/87 NIBP BP-Mean 104 Respiration from ECG 21 SpO2 99 I&O: 12/24/19 12/25/19 12/26/19 06:59 06:59 06:59 Intake Total 900 600 Output Total 1600 450 Balance -700 150 Result Diagrams: 12/25/19 05:18 12/25/19 05:18 Hospitalist ROS - Medication Medications: Active Medications Generic Name Dose Route Start Last Admin Trade Name Freq PRN Reason Stop Dose Admin Acetaminophen 1,000 mg 12/23/19 19:13 12/24/19 04:40 Acetaminophen 500 Mg Tab PO 1,000 mg Q4H PRN Administration Headache/Fever or Pain Buspirone HCl 15 mg 12/24/19 09:00 12/25/19 08:40 Buspirone Hcl 10 Mg Tab PO 15 mg TID RONEY Administration Enoxaparin Sodium 40 mg 12/23/19 21:00 12/24/19 21:00 Enoxaparin Sodium 40 Mg/0.4 Ml Syringe SC 40 mg 2100 RONEY Administration Famotidine 20 mg 12/23/19 21:00 12/25/19 08:41 Famotidine 20 Mg Tab PO 20 mg BID RONEY Administration Gabapentin 400 mg 12/24/19 09:00 12/25/19 08:41 Gabapentin 400 Mg Cap PO 400 mg BID RONEY Administration Lisinopril/HCTZ 1 tab 12/24/19 09:00 12/25/19 08:41 Lisinopril/Hydrochlorothiazide 20 Mg/12.5 Mg Tablet PO 1 tab QAM RONEY Administration Ketorolac Tromethamine 15 mg 12/24/19 08:59 12/24/19 09:42 Ketorolac Tromethamine 30 Mg/Ml Vial IVP 12/29/19 09:00 15 mg Q6H PRN Administration Pain Lamotrigine 150 mg 12/24/19 09:00 12/25/19 08:41 Lamotrigine 100 Mg Tab PO 150 mg BID RONEY Administration Mometasone Furoate/Formoterol Fumar 2 puff 12/24/19 18:30 12/25/19 07:49 Mometasone 200 Mcg/Formoterol 5 Mcg 120 Puff Inhaler INH 2 puff BID-RT RONEY Administration Pantoprazole Sodium 40 mg 12/24/19 09:00 12/25/19 08:41 Pantoprazole 40 Mg Tab PO 40 mg DAILY RONEY Administration Sodium Chloride 10 ml 12/23/19 21:00 12/25/19 08:41 Flush - Normal Saline 10 Ml Syringe IVF 10 ml Q12HR RONEY Administration Venlafaxine HCl 150 mg 12/24/19 09:00 12/25/19 08:41 Venlafaxine Hcl Xr 150 Mg Cap PO 150 mg QAM RONEY Administration Verapamil HCl 240 mg 12/24/19 09:00 12/25/19 08:41 Verapamil Sr 240 Mg Tab PO 240 mg DAILY RONEY Administration - Exam Eye: PERRL, anicteric sclera Heart: RRR, no murmur, no gallops, no rubs, normal peripheral pulses Respiratory: CTAB, no wheezes, no rales, no ronchi, normal chest expansion Gastrointestinal: soft, non-tender, non-distended, normal bowel sounds, no pa lpable masses Extremities: no cyanosis, no clubbing, no edema Neurological: normal sensation to touch, no focal deficits Psychiatric: normal affect, normal behavior Hosp A/P (1) Narcotic overdose Code(s): T40.601A - POISONING BY UNSP NARCOTICS, ACCIDENTAL, INIT Status: Acute Qualifiers: Injury intent: accidental or unintentional (2) Lower extremity weakness Code(s): R29.898 - OTH SYMPTOMS AND SIGNS INVOLVING THE MUSCULOSKELETAL SYSTEM Status: Acute (3) Cervical spinal stenosis Code(s): M48.02 - SPINAL STENOSIS, CERVICAL REGION Status: Chronic (4) Hx of cervical spine surgery Code(s): Z98.890 - OTHER SPECIFIED POSTPROCEDURAL STATES Status: Chronic (5) Hypertension Code(s): I10 - ESSENTIAL (PRIMARY) HYPERTENSION Status: Chronic (6) Chronic pain Code(s): G89.29 - OTHER CHRONIC PAIN Status: Acute - Plan * Accidental Narcotic Overdose- resolved- will need to limit the amount of narcotic medications * HTN- blood pressure is better, after re-starting Lisinopril and Verapamil * Chronic pain- improved * Supressed TSH- likely either sick euthyroid, or subclinical hyperthyroidism- no need for treatment * Continue PT/OT * Patient is being screened for Inpatient Rehab
--- NOTE | 2019-12-25 18:13 | PQF ---
CLINICAL DOCUMENTATION CLARIFICATION FORM: Dear Dr. Mary Date: 12/25/19 Please exercise your independent, professional judgment in responding to the clarification form. Clinical indicators are provided on the bottom of this form for your review. Please check appropriate box(es) to clarify if the following diagnosis has been ruled in our ruled out: SEPSIS [ ] Ruled in diagnosis [ ] Continue to treat [ ] Resolved [X ] Ruled out diagnosis [ ] Improving [ ] Cannot rule out diagnosis [ ] Other diagnosis [ ] Unable to determine In addition, please specify: Present on Admission (POA): [ ] Yes [ ] No [ ] Unable to determine For continuity of documentation, please document condition throughout progress notes and discharge summary. Thank You. CLINICAL INDICATORS - SIGNS / SYMPTOMS / LABS / RESULTS AND LOCATION IN MR H&P (AFFRAME): "SEPSIS" INITIAL WBC 12/22: 18.4 RISKS: ACDF 12/22 HYPOTENSION ELEMENTARY INSTRUCTIONAL COACH (H&P) TREATMENT: EPINEPHRINE PER EMS (H&P) BLOOD CULTURES 12/22 IV VANCOMYCIN (ER) IV CEFEPIME (ER) CDS Signature: Viviane Botello RN Phone #: [phone] Date: 12/25/19 DEREK
[2019-12-25] MEDS: Enoxaparin Sodium 40 MG/0.4 ML SYRINGE SC SCH (21:07)
[2019-12-25] MEDS: hydrALAZINE 25 MG TAB PO PRN (21:15)
[2019-12-26] MEDS: hydrALAZINE 25 MG TAB PO PRN (04:10)
[2019-12-26] MEDS: Mometasone 200 MCG/Formoterol 5 MCG 120 PUFF INHALER INH SCH ×2 (07:27→18:54)
[2019-12-26] MEDS: busPIRone HCl 10 MG TAB PO SCH ×3 (08:22→21:26)
[2019-12-26] MEDS: Venlafaxine HCl XR 150 MG CAP PO SCH (08:22)
[2019-12-26] MEDS: Famotidine 20 MG TAB PO SCH ×2 (08:22→21:26)
[2019-12-26] MEDS: lamoTRIgine 100 MG TAB PO SCH ×2 (08:23→21:26)
[2019-12-26] MEDS: cloNIDine 0.1 MG TAB PO SCH ×3 (08:23→21:25)
[2019-12-26] MEDS: Lisinopril/Hydrochlorothiazide 20 mg/12.5 mg Tablet PO SCH (08:24)
[2019-12-26] MEDS: Gabapentin 400 MG CAP PO SCH ×2 (08:24→21:26)
--- NOTE | 2019-12-26 09:01 | PDOC.HOSPP ---
- Subjective Encounter Date: 12/26/19 Encounter Time: 09:00 Subjective: Mr. Stuart was seen today in follow-up of narcotic overdose. He is now noting more pain in his neck and arms. - Objective Vital Signs & Weight: Vital Signs (12 hours) Temp Pulse Resp BP BP Pulse Ox 12/26/19 08:24 81 177/106 H 12/26/19 08:23 177/106 H 12/26/19 07:20 97.9 F 81 18 198/110 H 98 12/26/19 04:10 82 185/109 H 12/26/19 04:03 97.8 F 72 18 185/109 H 99 12/25/19 23:55 98.5 F 82 17 162/92 H 98 12/25/19 21:15 191/107 H Weight Weight 167 lb 4.8 oz Most Recent Monitor Data Heart Rate from ECG 76 NIBP 139/87 NIBP BP-Mean 104 Respiration from ECG 21 SpO2 99 I&O: 12/25/19 12/26/19 12/27/19 06:59 06:59 06:59 Intake Total 600 2220 Output Total 450 1850 Balance 150 370 Result Diagrams: 12/25/19 05:18 12/25/19 05:18 Hospitalist ROS - Medication Medications: Active Medications Generic Name Dose Route Start Last Admin Trade Name Shilpa PRN Reason Stop Dose Admin Acetaminophen 1,000 mg 12/23/19 19:13 12/24/19 04:40 Acetaminophen 500 Mg Tab PO 1,000 mg Q4H PRN Administration Headache/Fever or Pain Buspirone HCl 15 mg 12/24/19 09:00 12/26/19 08:22 Buspirone Hcl 10 Mg Tab PO 15 mg TID RONEY Administration Clonidine 0.1 mg 12/26/19 09:00 12/26/19 08:23 Clonidine 0.1 Mg Tab PO 0.1 mg TID RONEY Administration Enoxaparin Sodium 40 mg 12/23/19 21:00 12/25/19 21:07 Enoxaparin Sodium 40 Mg/0.4 Ml Syringe SC 40 mg 2100 RONEY Administration Famotidine 20 mg 12/23/19 21:00 12/26/19 08:22 Famotidine 20 Mg Tab PO 20 mg BID RONEY Administration Gabapentin 400 mg 12/24/19 09:00 10/16/20 08:24 Gabapentin 400 Mg Cap PO 400 mg BID RONEY Administration Lisinopril/HCTZ 1 tab 12/24/19 09:00 12/26/19 08:24 Lisinopril/Hydrochlorothiazide 20 Mg/12.5 Mg Tablet PO 1 tab QAM RONEY Administration Hydralazine HCl 25 mg 12/24/19 08:40 12/26/19 04:10 Hydralazine 25 Mg Tab PO 25 mg TID PRN Administration SBP Greater Than 170 Ketorolac Tromethamine 15 mg 12/24/19 08:59 12/24/19 09:42 Ketorolac Tromethamine 30 Mg/Ml Vial IVP 12/29/19 09:00 15 mg Q6H PRN Administration Pain Lamotrigine 150 mg 12/24/19 09:00 12/26/19 08:23 Lamotrigine 100 Mg Tab PO 150 mg BID RONEY Administration Mometasone Furoate/Formoterol Fumar 2 puff 12/24/19 18:30 12/26/19 07:27 Mometasone 200 Mcg/Formoterol 5 Mcg 120 Puff Inhaler INH Not Given BID-RT RONEY Pantoprazole Sodium 40 mg 12/24/19 09:00 12/26/19 08:23 Pantoprazole 40 Mg Tab PO 40 mg DAILY RNOEY Administration Sodium Chloride 10 ml 12/23/19 21:00 12/25/19 21:08 Flush - Normal Saline 10 Ml Syringe IVF 10 ml Q12HR RONEY Administration Venlafaxine HCl 150 mg 12/24/19 09:00 12/26/19 08:22 Venlafaxine Hcl Xr 150 Mg Cap PO 150 mg QAM RONEY Administration Verapamil HCl 240 mg 12/24/19 09:00 12/26/19 08:24 Verapamil Sr 240 Mg Tab PO 240 mg DAILY RONEY Administration - Exam Eye: PERRL, anicteric sclera Heart: RRR, no murmur, no gallops, no rubs, normal peripheral pulses Respiratory: CTAB, no wheezes, no rales, no ronchi, normal chest expansion, no tachypnea, normal percussion Gastrointestinal: soft, non-tender, non-distended, normal bowel sounds, no palpable masses, no hepatomegaly Extremities: no cyanosis, no edema Neurological: no focal deficits Psychiatric: normal affect, normal behavior Hosp A/P (1) Narcotic overdose Code(s): T40.601A - POISONING BY UNSP NARCOTICS, ACCIDENTAL, INIT Status: Acute Qualifiers: Injury intent: accidental or unintentional (2) Lower extremity weakness Code(s): R29.898 - OTH SYMPTOMS AND SIGNS INVOLVING THE MUSCULOSKELETAL SYSTEM Status: Acute (3) Cervical spinal stenosis Code(s): M48.02 - SPINAL STENOSIS, CERVICAL REGION Status: Chronic (4) Hx of cervical spine surgery Code(s): Z98.890 - OTHER SPECIFIED POSTPROCEDURAL STATES Status: Chronic (5) Hypertension Code(s): I10 - ESSENTIAL (PRIMARY) HYPERTENSION Status: Chronic (6) Chronic pain Code(s): G89.29 - OTHER CHRONIC PAIN Status: Acute - Plan * Accidental Narcotic Overdose- resolved- will need to limit the amount of narcotic medications * HTN- blood pressure is elevated again- will add scheduled clonidine, and continue his other medications * Chronic pain- judicious use of pain medication * Supressed TSH- likely either sick euthyroid, or subclinical hyperthyroidism- no need for treatment * Continue PT/OT * Awaiting Inpatient Rehab screen
[2019-12-26] MEDS: HYDROcodone/Acetaminophen 10/325 mg Tablet PO PRN ×2 (09:07→18:29)
[2019-12-26] MEDS: Enoxaparin Sodium 40 MG/0.4 ML SYRINGE SC SCH (21:26)
[2019-12-27] MEDS: hydrALAZINE 25 MG TAB PO PRN (04:12)
[2019-12-27] MEDS: HYDROcodone/Acetaminophen 10/325 mg Tablet PO PRN (04:22)
[2019-12-27] MEDS: Mometasone 200 MCG/Formoterol 5 MCG 120 PUFF INHALER INH SCH (07:21)
[2019-12-27] MEDS: busPIRone HCl 10 MG TAB PO SCH ×2 (08:26→15:05)
[2019-12-27] MEDS: Venlafaxine HCl XR 150 MG CAP PO SCH (08:28)
[2019-12-27] MEDS: lamoTRIgine 100 MG TAB PO SCH (08:30)
[2019-12-27] MEDS: Famotidine 20 MG TAB PO SCH (08:32)
[2019-12-27] MEDS: Gabapentin 400 MG CAP PO SCH (08:32)
[2019-12-27] MEDS: Lisinopril/Hydrochlorothiazide 20 mg/12.5 mg Tablet PO SCH (08:32)
[2019-12-27] MEDS: cloNIDine 0.1 MG TAB PO SCH ×2 (08:33→15:05)
--- NOTE | 2019-12-27 11:03 | EKG ---
Test Reason : Blood Pressure : / mmHG Vent. Rate : 090 BPM Atrial Rate : 090 BPM P-R Int : 136 ms QRS Dur : 092 ms QT Int : 394 ms P-R-T Axes : 079 044 064 degrees QTc Int : 481 ms Normal sinus rhythm Voltage criteria for left ventricular hypertrophy Prolonged QT Abnormal ECG Confirmed by DAKOTA SALCEDO DO ([id number]), newspaper managing editor JAILENE HARRIS ([id number]) on 12/27/2019 11:03:00 AM Referred By: Confirmed By:DAKOTA SALCEDO DO
--- NOTE | 2019-12-27 12:52 | PDOC.HOSPP ---
- Subjective Encounter Date: 12/27/19 Encounter Time: 11:45 Subjective: Patient up in bed states that he wants to go home instead of rehab. - Objective Vital Signs & Weight: Vital Signs (12 hours) Temp Pulse Resp BP BP Pulse Ox 12/27/19 11:46 98.4 F 65 18 114/75 100 12/27/19 08:33 147/90 H 12/27/19 08:32 70 147/90 H 12/27/19 08:15 96 12/27/19 07:11 98.4 F 70 18 147/90 H 96 12/27/19 04:12 65 171/112 H 12/27/19 04:00 98.5 F 65 18 171/112 H 98 Weight Weight 160 lb 1.6 oz Most Recent Monitor Data Heart Rate from ECG 76 NIBP 139/87 NIBP BP-Mean 104 Respiration from ECG 21 SpO2 99 I&O: 12/26/19 12/27/19 12/28/19 06:59 06:59 06:59 Intake Total 2220 720 Output Total 1850 5293 935 Balance 266 -0299 -326 Result Diagrams: 12/25/19 05:18 12/25/19 05:18 Hospitalist ROS - Review of Systems Cardiovascular: denies: chest pain, palpitations, orthopnea, paroxysmal noc. dyspnea, edema, light headedness, other Gastrointestinal: denies: nausea, vomiting, abdominal pain, diarrhea, constipation, melena, hematochezia, other Genitourinary: denies: dysuria, frequency, incontinence, hematuria, retention, other - Medication Medications: Active Medications Generic Name Dose Route Start Last Admin Trade Name Nitoq PRN Reason Stop Dose Admin Acetaminophen 1,000 mg 12/23/19 19:13 12/24/19 04:40 Acetaminophen 500 Mg Tab PO 1,000 mg Q4H PRN Administration Headache/Fever or Pain Hydrocodone Bitart/Acetaminophen 1 tab 12/24/19 15:40 12/27/19 04:22 Hydrocodone/Acetaminophen 10/325 Mg Tablet PO 1 tab Q4H PRN Administration Moderate to Severe Pain (6-10) Buspirone HCl 15 mg 12/24/19 09:00 12/27/19 08:26 Buspirone Hcl 10 Mg Tab PO 15 mg TID RONEY Administration Clonidine 0.1 mg 12/26/19 09:00 12/27/19 08:33 Clonidine 0.1 Mg Tab PO 0.1 mg TID RONEY Administration Enoxaparin Sodium 40 mg 12/23/19 21:00 12/26/19 21:26 Enoxaparin Sodium 40 Mg/0.4 Ml Syringe SC 40 mg 2100 RONEY Administration Famotidine 20 mg 12/23/19 21:00 12/27/19 08:32 Famotidine 20 Mg Tab PO 20 mg BID RONEY Administration Gabapentin 400 mg 12/24/19 09:00 12/27/19 08:32 Gabapentin 400 Mg Cap PO 400 mg BID RONEY Administration Lisinopril/HCTZ 1 tab 12/24/19 09:00 12/27/19 08:32 Lisinopril/Hydrochlorothiazide 20 Mg/12.5 Mg Tablet PO 1 tab QAM RONEY Administration Hydralazine HCl 25 mg 12/24/19 08:40 12/27/19 04:12 Hydralazine 25 Mg Tab PO 25 mg TID PRN Administration SBP Greater Than 170 Ketorolac Tromethamine 15 mg 12/24/19 08:59 12/24/19 09:42 Ketorolac Tromethamine 30 Mg/Ml Vial IVP 12/29/19 09:00 15 mg Q6H PRN Administration Pain Lamotrigine 150 mg 12/24/19 09:00 12/27/19 08:30 Lamotrigine 100 Mg Tab PO 150 mg BID RONEY Administration Mometasone Furoate/Formoterol Fumar 2 puff 12/24/19 18:30 12/27/19 07:21 Mometasone 200 Mcg/Formoterol 5 Mcg 120 Puff Inhaler INH 2 puff BID-RT RONEY Administration Pantoprazole Sodium 40 mg 12/24/19 09:00 12/27/19 08:32 Pantoprazole 40 Mg Tab PO 40 mg DAILY RONEY Administration Sodium Chloride 10 ml 12/23/19 21:00 12/27/19 08:33 Flush - Normal Saline 10 Ml Syringe IVF 10 ml Q12HR RONEY Administration Venlafaxine HCl 150 mg 12/24/19 09:00 12/27/19 08:28 Venlafaxine Hcl Xr 150 Mg Cap PO 150 mg QAM RONEY Administration Verapamil HCl 240 mg 12/24/19 09:00 12/27/19 08:32 Verapamil Sr 240 Mg Tab PO 240 mg DAILY RONEY Administration - Exam Neck: negative: supple, symmetric, no JVD, no thyromegaly, no lymphadenopathy, no carotid bruit, JVD Heart: negative: RRR, no murmur, no gallops, no rubs, normal peripheral pulses, irregular, diminshed peripheral pulses, murmur present, II/IV, III/IV Respiratory: negative: CTAB, no wheezes, no rales, no ronchi, normal chest expansion, no tachypnea, normal percussion, rales, rhonchi, tachypneic, wheezes Hosp A/P (1) Chronic pain Code(s): G89.29 - OTHER CHRONIC PAIN Status: Acute (2) Lower extremity weakness Code(s): R29.898 - OTH SYMPTOMS AND SIGNS INVOLVING THE MUSCULOSKELETAL SYSTEM Status: Acute (3) Narcotic overdose Code(s): T40.601A - POISONING BY UNSP NARCOTICS, ACCIDENTAL, INIT Status: Acute Qualifiers: Injury intent: accidental or unintentional (4) Cervical spinal stenosis Code(s): M48.02 - SPINAL STENOSIS, CERVICAL REGION Status: Chronic (5) Hx of cervical spine surgery Code(s): Z98.890 - OTHER SPECIFIED POSTPROCEDURAL STATES Status: Chronic (6) Hypertension Code(s): I10 - ESSENTIAL (PRIMARY) HYPERTENSION Status: Chronic - Plan We will remove Banegas catheter. Patient currently ambulating with a neck brace on. Waiting for insurance approval for inpatient rehab.
[2019-12-27 15:59] VITALS: BP 130/83; TEMP 97.6
--- NOTE | 2020-01-01 11:42 | DIS ---
DATE OF ADMISSION: 12/24/2019 DATE OF DISCHARGE: 12/27/2019 DISCHARGE DIAGNOSES: Are as the followin. Chronic pain. 2. Lower extremity weakness. 3. Narcotic overdose. 4. Cervical spine stenosis. 5. History of cervical spine surgery. 6. Hypertension. HOSPITAL COURSE: Patient is a 69-year-old male, who initially presented to the hospital on 12/22. Please refer to the H and P for further details with the intermitted paralysis and hypotension. It was noted that patient's was giving him pain medications around the clock. At this time, patient was given Narcan and was put on a Narcan drip, which seems to reverse the paralysis. Patient was seen by Neurosurgery and underwent a CT head and soft tissue neck CT. Soft tissue neck CT indicated status post anterior cervical diskectomy and fusion, laminectomies, and posterior fusion hardware. Also noted, postsurgical enhancing granulation tissues circumferential around the thecal sac outlines anterior displacement and compression of almost the entire thecal sac by what is presumed to present dorsal postoperative extradural fluid collection. Patient continued to improve through the hospital stay. He initially was supposed to go to inpatient rehabilitation. However, patient was able to ambulate with physical therapy without any problems and the patient insisted on being discharged home with home health. I did educate the patient not to take the medications every 4 hours, only take it as needed. He understood and stated that he will do so. He will follow up with Neurosurgery as outpatient. HOME MEDICATIONS: Will be continued, which includes: 1. Lamotrigine 150 mg b.i.d. 2. Venlafaxine 150 mg daily. 3. Verapamil 240 daily. 4. Buspirone 15 mg t.i.d. 5. Budesonide one puff b.i.d. p.r.n. 6. Lisinopril/hydrochlorothiazide 1 tab daily. 7. Pantoprazole 40 mg daily. 8. Albuterol as needed. PHYSICAL EXAMINATION: Please refer to my progress note for vital signs and physical examination. The patient was seen on the day of discharge. Job ID: [id number]
== END 2019-12-27 16:49 | disposition home health service (06) | DRG 91 ==
LOC: ERS 12:13 → IMCU/EMU 15:18 → OBSVTOIN 12-24 14:21 → SURG A 12-24 17:07
PROVIDERS: ADMIT Student in an Organized Health Care Education/Training Program; ATTEND Student in an Organized Health Care Education/Training Program
DX: G97.82 Other postprocedural complications and disorders of nervous system (principal); G92 Toxic encephalopathy; J96.01 Acute respiratory failure with hypoxia; R57.9 Shock, unspecified; T40.691A Poisoning by other narcotics, accidental (unintentional), initial encounter; Z98.1 Arthrodesis status; Y83.8 Other surgical procedures as the cause of abnormal reaction of the patient, or of later complication, without mention of misadventure at the time of the procedure; G89.29 Other chronic pain; I10 Essential (primary) hypertension; R94.6 Abnormal results of thyroid function studies; M48.02 Spinal stenosis, cervical region; Z79.899 Other long term (current) drug therapy
CPT/HCPCS: 36415; 70450; 70491; 71045; 80048; 80053; 80307; 81003; 82550; 82607; 84439; 84443; 84481; 85025; 87040; 93005; 93970; 96365; 96366; 96367; 96368; 96372; 96375; 96376; G0378; J0692; J1650; J1885; J2310; J2405; J2920; J2930; J3370; J7030; Q9967

== ENCOUNTER 2020-02-03 12:39 | Outpatient (CLI) | payer MEDICARE ==
--- NOTE | 2020-02-03 13:00 | RAD ---
CERVICAL SPINE 3 VIEWS: Date: 02/03/2020 HISTORY: Cervical radiculopathy. Comparison made to CT cervical spine dated 12/23/2019. FINDINGS: Extensive postoperative change. Anterior plate and screws transfix C3, C4, C5, C6, and C7. Posterior pedicle screws and rods are also present at these levels. Interbody implants. Vertebral bodies show l oss of height throughout these levels with anterior wedging which is stable. Posterior alignment show s posterolisthesis at C5-6. Loss of disc space and degenerative change at C2-3 appears stable. Slight anterolisthesis at C2-3 is stable. IMPRESSION: Postoperative and degenerative changes of cervical spine again noted. The posterolisthesis at C5-6 ap pears slightly more prominent on today's films when compared to the prior CT. POS: AGW
== END 2020-02-03 12:40 | disposition home or self-care (01) ==
LOC: TBSIIMAG 12:39
PROVIDERS: ATTEND Surgery
DX: M50.10 Cervical disc disorder with radiculopathy, unspecified cervical region (principal); M50.00 Cervical disc disorder with myelopathy, unspecified cervical region; M48.02 Spinal stenosis, cervical region; M47.22 Other spondylosis with radiculopathy, cervical region; M43.12 Spondylolisthesis, cervical region; Z98.890 Other specified postprocedural states
CPT/HCPCS: 72040